=== PATIENT | female | born 2000 | race American Indian/Alaskan Native ===

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

== ENCOUNTER 2022-02-21 19:34 | Emergency (ER) | payer MEDICAID ==
[2022-02-22 00:45] VITALS: BP 131/80
[2022-02-22] MEDS ORDERED: IBUPROFEN 800 MG TAB PO ONE (02:26)
--- NOTE | 2022-02-22 02:32 | Emergency Department Report ---
ED Lower Extremity HPI - General Chief Complaint: Extremity Problem,Nontraumatic Stated Complaint: BILATERAL FOOT SWELLING Time Seen by Provider: 02/22/22 02:25 Source: patient Mode of arrival: Ambulatory Limitations: No Limitations - History of Present Illness Initial Comments: Patient is a 22-year-old -[place]in[place] female with history of obesity who presents for bilateral foot swelling. 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 Now with intermittent bilateral lower extremity swelling. Patient rates pain at 3/10 intermittent. Symptoms are relieved by offloading and rest. Symptoms are exacerbated by performing work duties for prolonged period of time. Patient denies fall injury or trauma. Denies problem with ambulation. Patient denies history of hypertension. There is no cardiac disease. No history of asthma. - Related Data Previous Rx's Medication Instructions Recorded Last Taken Type Albuterol Sulfate [Proair 90 mcg IH Q4HR PRN #2 aer.pow.ba 05/28/16 Unknown Rx Respiclick] EPINEPHrine [Epipen 2-Fareed] 0.3 mg IM DAILY PRN #2 ml 05/28/16 Unknown Rx Famotidine [Pepcid] 20 mg PO BID #10 tablet 05/28/16 Unknown Rx diphenhydrAMINE [Benadryl] 50 mg PO Q8HR PRN #20 capsule 05/28/16 Unknown Rx predniSONE [Deltasone] 40 mg PO QDAY #8 tab 05/28/16 Unknown Rx Azithromycin [Zithromax Z-FAREED] 250 mg PO DAILY #6 tablet 07/31/17 Unknown Rx methocarbamoL [Robaxin-750] 750 mg PO Q12H PRN 6 Days #12 08/19/17 Unknown Rx tablet traMADoL [Ultram] 50 mg PO Q6HR PRN 4 Days #12 tablet 08/19/17 Unknown Rx ALBUTEROL Inhaler(NF) [VENTOLIN 2 puff IH Q6H PRN #1 inha 10/07/18 Unknown Rx Inhaler(NF)] Azithromycin [Zithromax Z-FAREED] 250 mg PO DAILY 5 Days #6 tab 10/07/18 Unknown Rx Ibuprofen [Ibuprofen 800] 800 mg PO TID #30 tablet 10/07/18 Unknown Rx predniSONE [Deltasone] 40 mg PO QDAY 5 Days #10 tab 10/07/18 Unknown Rx Ibuprofen [Motrin 800 MG tab] 800 mg PO Q8HR PRN #30 tablet 01/09/20 Unknown Rx hydroCHLOROthiazide [HCTZ] 25 mg PO QDAY 7 Days #7 tablet 02/22/22 Unknown Rx Allergies Allergy/AdvReac Type Severity Reaction Status Date / Time peanut Allergy Unknown Verified 07/31/17 19:28 Penicillins Allergy Unknown Verified 07/31/17 19:28 seafood Allergy Rash Uncoded 05/28/16 19:51 ED Review of Systems ROS: Stated complaint: BILATERAL FOOT SWELLING Other details as noted in HPI Constitutional: denies: chills, fever Eyes: denies: eye pain, eye discharge, vision change ENT: denies: ear pain, throat pain Respiratory: denies: cough, shortness of breath, wheezing Cardiovascular: denies: chest pain, palpitations Endocrine: no symptoms reported Gastrointestinal: denies: abdominal pain, nausea, diarrhea Genitourinary: denies: urgency, dysuria, discharge Musculoskeletal: other (Bilateral lower extremity swelling.). denies: back pain, joint swelling, arthralgia Skin: denies: rash, lesions Neurological: denies: headache, weakness, paresthesias, vertigo Psychiatric: denies: anxiety, depression Hematological/Lymphatic: denies: easy bleeding, easy bruising ED Past Medical Hx - Past Medical History Hx Asthma: Yes Additional medical history: eczema, Obesity - Surgical History Additional Surgical History: heel surgery - Social History Smoking Status: Never Smoker Substance Use Type: None - Medications Home Medications: Home Medications Medication Instructions Recorded Confirmed Last Taken Type Albuterol Sulfate [Proair 90 mcg IH Q4HR PRN #2 aer.pow.ba 05/28/16 Unknown Rx Respiclick] EPINEPHrine [Epipen 2-Fareed] 0.3 mg IM DAILY PRN #2 ml 05/28/16 Unknown Rx Famotidine [Pepcid] 20 mg PO BID #10 tablet 05/28/16 Unknown Rx diphenhydrAMINE [Benadryl] 50 mg PO Q8HR PRN #20 capsule 05/28/16 Unknown Rx predniSONE [Deltasone] 40 mg PO QDAY #8 tab 05/28/16 Unknown Rx Azithromycin [Zithromax Z-FAREED] 250 mg PO DAILY #6 tablet 07/31/17 Unknown Rx methocarbamoL [Robaxin-750] 750 mg PO Q12H PRN 6 Days #12 08/19/17 Unknown Rx tablet traMADoL [Ultram] 50 mg PO Q6HR PRN 4 Days #12 tablet 08/19/17 Unknown Rx ALBUTEROL Inhaler(NF) [VENTOLIN 2 puff IH Q6H PRN #1 inha 10/07/18 Unknown Rx Inhaler(NF)] Azithromycin [Zithromax Z-FAREED] 250 mg PO DAILY 5 Days #6 tab 10/07/18 Unknown Rx Ibuprofen [Ibuprofen 800] 800 mg PO TID #30 tablet 10/07/18 Unknown Rx predniSONE [Deltasone] 40 mg PO QDAY 5 Days #10 tab 10/07/18 Unknown Rx Ibuprofen [Motrin 800 MG tab] 800 mg PO Q8HR PRN #30 tablet 01/09/20 Unknown Rx hydroCHLOROthiazide [HCTZ] 25 mg PO QDAY 7 Days #7 tablet 02/22/22 Unknown Rx ED Physical Exam - General Limitations: No Limitations General appearance: alert, in no apparent distress - Head Head exam: Present: normocephalic, normal inspection - Eye Eye exam: Present: normal appearance, PERRL, EOMI Pupils: Present: normal accommodation - ENT ENT exam: Present: mucous membranes moist - Neck Neck exam: Present: normal inspection, full ROM. Absent: tenderness, lymphadenopathy - Respiratory Respiratory exam: Present: normal lung sounds bilaterally. Absent: respiratory distress, wheezes, rales, rhonchi, stridor, chest wall tenderness - Cardiovascular Cardiovascular Exam: Present: regular rate, normal rhythm, normal heart sounds. Absent: systolic murmur, diastolic murmur, rubs, gallop - GI/Abdominal GI/Abdominal exam: Present: soft, normal bowel sounds. Absent: distended, tenderness - Extremities Exam Extremities exam: Present: normal inspection, full ROM, normal capillary refill, pedal edema (Bilateral lower feet negative Homans' sign range of motion intact unrestricted. There is no erythema.). Absent: tenderness, calf tenderness - Back Exam Back exam: Present: normal inspection, full ROM. Absent: CVA tenderness (R), CVA tenderness (L) - Neurological Exam Neurological exam: Present: alert, oriented X3, CN II-XII intact, normal gait, reflexes normal. Absent: motor sensory deficit - Expanded Neurological Exam Expanded Patient oriented to: Present: person, place, time Speech: Present: fluid speech Motor strength exam: RLE: 5, LLE: 5 DTR: ankle (R): 1+, ankle (L): 1+ Best Eye Response (Jose): (4) open spontaneously Best Motor Response ([place]): (6) obeys commands Best Verbal Response (Jose): (5) oriented [place] Total: 15 - Psychiatric Psychiatric exam: Present: normal affect, normal mood - Skin Skin exam: Present: warm, dry, intact, normal color. Absent: rash ED Course Vital Signs 02/21/22 02/22/22 19:56 00:45 Temperature 98.3 F 98.5 F Pulse Rate 97 H 86 Respiratory 18 18 Rate Blood Pressure 152/104 Blood Pressure 131/80 [Right] O2 Sat by Pulse 100 99 Oximetry ED Lower Extremity MDM - Medical Decision Making This is bilateral peripheral edema plan NSAIDs,, short burst HCTZ. Follow-up primary care doctor in 2 to 3 days. Return to emergency department should symptoms worsen. Patient verbalized agreement understanding with discharge plan. Patient DC'd home in stable condition at this time. Critical care attestation.: If time is entered above; I have spent that time in minutes in the direct care of this critically ill patient, excluding procedure time. ED Disposition Clinical Impression: Peripheral edema Disposition: 01 HOME / SELF CARE / HOMELESS Is pt being admited?: No Does the pt Need Aspirin: No Condition: Stable Instructions: Peripheral Edema Additional Instructions: Take medications as prescribed, follow-up with your doctor in 2 to 3 days. Return to emergency department should symptoms worsen. Prescriptions: hydroCHLOROthiazide [HCTZ] 25 mg PO QDAY 7 Days #7 tablet Referrals: GRIFFIN FLORES MD [Staff Physician] - 3-5 Days Forms: Work/School Release Form(ED) Time of Disposition: 02:35
== END 2022-02-22 02:55 | disposition home or self-care (01) ==
LOC: ED 19:34
DX: R60.9 Edema, unspecified (principal); J45.909 Unspecified asthma, uncomplicated; E66.9 Obesity, unspecified; Z98.890 Other specified postprocedural states; Z88.0 Allergy status to penicillin; Z91.010 Allergy to peanuts; Z91.013 Allergy to seafood
CPT/HCPCS: 99282